=== PATIENT | male | born 1980 | race Caucasian/White ===

== ENCOUNTER → 2016-04-11 | Outpatient (CLI) | payer OTHER ==
--- NOTE | 2016-04-11 09:37 | REP ---
Chest x-ray: Two views. History: Bronchitis. . Comparison study: February 01, 2016 . Findings: The lungs are well inflated and free of infiltrate. The pleural angles are sharp. The heart size is normal. Pulmonary vasculature is not increased. No significant bony abnormality is seen. Impression: Negative chest x-ray. Signed by Kevyn Flynn MD 04/11/2016 09:28 A
== END ==
LOC: M WUC 08:43
PROVIDERS: ATTEND Physician Assistant Medical
DX: J20.9 Acute bronchitis, unspecified (principal)

== ENCOUNTER 2016-09-10 20:09 | Emergency (ER) | payer OTHER ==
[~2016-09-10] VITALS: Ht 185.4 cm; Wt 80.9 kg
[2016-09-10 20:10] VITALS: BP 156/94
[2016-09-10] MEDS ORDERED: BENA25TA10 PO (20:19)
[2016-09-10] MEDS ORDERED: PRED20TA PO (21:53)
[2016-09-10] MEDS ORDERED: SING10TA32 PO (21:53)
[2016-09-10] MEDS ORDERED: predniSONE 20 MG TAB PO ONE (22:00)
== END 2016-09-10 22:05 | disposition home or self-care (01) ==
LOC: M ED 21:35
DX: J02.9 Acute pharyngitis, unspecified (principal); R05 Cough; J30.2 Other seasonal allergic rhinitis

== ENCOUNTER → 2017-06-04 | Outpatient (REF) | payer OTHER | LOC: M LAB REF 06-05 12:02 | DX: J02.9 Acute pharyngitis, unspecified (principal) ==

== ENCOUNTER → 2017-11-11 | Outpatient (REF) | payer BC | LOC: M LAB REF 19:22 | DX: J02.9 Acute pharyngitis, unspecified (principal) | CPT/HCPCS: 87081 ==

== ENCOUNTER 2018-04-07 06:43 | Emergency (ER) | payer OTHER, BC ==
[~2018-04-07] VITALS: Ht 185.4 cm; Wt 81.8 kg
[~2018-04-07 06:43] MED LIST: BENA25TA10 PO; PRED20TA PO; SING10TA32 PO
[2018-04-07] MEDS ORDERED: VENTAER INH (06:50)
[2018-04-07] MEDS ORDERED: KETOROLAC TROMETHAMINE 10 MG TAB PO ONE (07:15)
--- NOTE | 2018-04-07 07:34 | REP ---
Clinical: Trauma/fall. Technique: AP, lateral, bilateral oblique views of the left elbow. Findings: No acute fracture or dislocation is appreciated. Joint spaces and surrounding soft tissues appear normal. Lateral view demonstrates normal positioning to the anterior and posterior fat pads without evidence for effusion/hemarthrosis. No subcutaneous emphysema or foreign body identified. Impression: Normal left elbow radiographs. Electronically Signed by Irvin Kwok MD 04/07/2018 07:26 A
--- NOTE | 2018-04-07 07:36 | REP ---
Clinical: Trauma/fall. Technique: Internal rotation, external rotation, and Y view of the left shoulder. Findings: No acute fracture or dislocation. The acromioclavicular and glenohumeral joints are intact. No periarticular calcifications or degenerative changes are appreciated. Sub acromial space is normal. Surrounding soft tissues are unremarkable. Impression: Normal left shoulder radiographs. Electronically Signed by Irvin Kwok MD 04/07/2018 07:28 A
--- NOTE | 2018-04-07 07:38 | REP ---
Clinical: Trauma/fall' Technique: AP view of the left scapula. Findings: No acute fracture or dislocation. Surrounding soft tissues are normal. Impression: NO acute fracture or dislocation. Electronically Signed by Irvin Kwok MD 04/07/2018 07:30 A
[2018-04-07] MEDS ORDERED: KETO10TAB PO (07:54)
[2018-04-07 08:03] VITALS: BP 126/63
== END 2018-04-07 08:20 | disposition home or self-care (01) ==
LOC: M ED 06:43
DX: S50.02XA Contusion of left elbow, initial encounter (principal); S40.012A Contusion of left shoulder, initial encounter; W00.0XXA Fall on same level due to ice and snow, initial encounter; Y92.89 Other specified places as the place of occurrence of the external cause; Y99.0 Civilian activity done for income or pay; J45.909 Unspecified asthma, uncomplicated

== ENCOUNTER → 2018-12-30 | Outpatient (REF) | payer OTHER, BC ==
[~2018-12-30] MED LIST changes: +KETO10TAB PO; +VENTAER INH
== END ==
LOC: M LAB REF 19:26
PROVIDERS: ATTEND Physician Assistant Medical
DX: J02.9 Acute pharyngitis, unspecified (principal)

== ENCOUNTER → 2019-07-11 | Outpatient (REF) | payer OTHER | LOC: M LAB REF 18:08 | PROVIDERS: ATTEND Physician Assistant | DX: J02.9 Acute pharyngitis, unspecified (principal) ==

== ENCOUNTER → 2020-01-28 | Outpatient (CLI) | payer OTHER ==
[2020-01-28 14:58] LABS: ALBUMIN 4.2 GM/DL (3.2-5.2); ALT/SGPT 38 U/L (12-78); BLOOD UREA NITROGEN 14 MG/DL (7-18); CALCIUM LEVEL 9.2 MG/DL (8.5-10.1); CARBON DIOXIDE LEVEL 30 MEQ/L (21-32); CHLORIDE LEVEL 105 MEQ/L (98-107); CHOLESTEROL LEVEL 179 MG/DL (<200); CHOLESTEROL RISK RATIO 3.509 (<5); CREATININE FOR GFR 1.13 MG/DL (0.70-1.30); FREE T4 1.05 NG/DL (0.76-1.46); GLOMERULAR FILTRATION RATE > 60.0 (>60); GLUCOSE, FASTING 88 MG/DL (70-100); HDL CHOLESTEROL 51 MG/DL (>40); HEMOGLOBIN A1c 4.9 %; LDL CHOLESTEROL 104 MG/DL (<100); NON-HDL-C 128 MG/DL; SODIUM LEVEL 140 MEQ/L (136-145); THYROID PEROXIDASE ANTIBODY 43.4 U/ML (<60.0); TOTAL PROTEIN 7.3 GM/DL (6.4-8.2); TRIGLYCERIDES LEVEL 118 MG/DL (<150)
== END ==
LOC: M WUC 11:13
PROVIDERS: ATTEND Family Medicine
DX: E78.2 Mixed hyperlipidemia (principal)

== ENCOUNTER → 2020-09-13 | Outpatient (REF) | payer OTHER | LOC: M LAB REF 13:39 | PROVIDERS: ATTEND Family Medicine | DX: C44.619 Basal cell carcinoma of skin of left upper limb, including shoulder (principal) ==

== ENCOUNTER → 2020-11-08 | Outpatient (REF) | payer OTHER | LOC: M SFHCPLAZ 17:18 | PROVIDERS: ATTEND Family Medicine | DX: C44.619 Basal cell carcinoma of skin of left upper limb, including shoulder (principal); C44.612 Basal cell carcinoma of skin of right upper limb, including shoulder ==

== ENCOUNTER → 2021-02-14 | Outpatient (REF) | payer OTHER | LOC: M SFHCPLAZ 13:20 | PROVIDERS: ATTEND Family Medicine | DX: C44.519 Basal cell carcinoma of skin of other part of trunk (principal); C44.612 Basal cell carcinoma of skin of right upper limb, including shoulder ==

== ENCOUNTER → 2023-09-10 | Outpatient (REF) | payer OTHER ==
[~2023-09-10] MED LIST changes: +MONT-5 PO; -SING10TA32 PO
== END ==
LOC: M SFHCPLAZ 08:51
PROVIDERS: ATTEND Family Medicine
DX: E55.9 Vitamin D deficiency, unspecified (principal); E78.2 Mixed hyperlipidemia

== ENCOUNTER → 2024-01-07 | Outpatient (REF) | payer OTHER | LOC: M SFHCDERM 13:39 | PROVIDERS: ATTEND Family Medicine | DX: C44.41 Basal cell carcinoma of skin of scalp and neck (principal) ==